=== PATIENT | male | born 1995 | race Caucasian/White ===

== ENCOUNTER 2021-02-01 17:13 | Emergency (ER) | payer OTHER ==
[~2021-02-01] VITALS: Ht 205.7 cm; Wt 249.5 kg
[2021-02-01 18:43] LABS: ABSOLUTE NEUTROPHILS 6.4 thou/uL (1.4-8.2); BASOPHILS 0.7 % (0.0-2.0); EOSINOPHILS 2.4 % (0.0-3.0); HEMATOCRIT 46.3 % (42.0-52.0); HEMOGLOBIN 15.3 gm/dL (14.0-18.0); LYMPHOCYTES 24.7 % (24.0-44.0); MCH 29.6 pg (26.0-34.0); MCHC 33.2 g/dL (28.0-37.0); MCV 89.3 fL (80.0-100.0); MONOCYTES 7.4 % (1.0-8.0); PLATELET COUNT 280 thou/uL (150-400); POLYS 64.8 % (36.0-66.0); RBC 5.18 mil/uL (4.50-6.00); RDW 14.5 % (10.5-14.5); WBC 9.8 thou/uL (4.0-11.0)
[2021-02-01 18:45] LABS: ANION GAP 8 mmol/L (7-16); BUN 14 mg/dL (7-18); CALCIUM 9.3 mg/dL (8.5-10.1); CHLORIDE 106 mmol/L (98-107); CO2 26 mmol/L (21-32); CREATININE 1.1 mg/dL (0.7-1.3); GLUCOSE 88 mg/dL (74-106); POTASSIUM 3.8 mmol/L (3.5-5.1); SODIUM 140 mmol/L (136-145)
[2021-02-01 18:55] LABS: ALBUMIN 3.5 g/dL (3.4-5.0); SGOT 38 U/L (15-37); SGPT 48 U/L (16-63); TOTAL BILIRUBIN 0.7 mg/dL (0.2-1.0); TOTAL PROTEIN 7.7 g/dL (6.4-8.2); TROPONIN-I <0.06 ng/mL (<0.06)
[2021-02-01] MEDS ORDERED: PROAIR HFA8.5 GM INH (20:21)
[2021-02-01] MEDS ORDERED: PREDNISONE 20 M20 MG PO (20:21)
[2021-02-01 20:30] VITALS: BP 155/83
--- NOTE | 2021-02-02 07:03 | EKG ---
[place] [address] [facility] [place] [address] ELECTROCARDIOGRAM REPORT Name: GIOVANNY MACKAY Room #: DEP JOHNNIE Mahnaz#: [id number] Admission: 02/01/21 Attend Phys: Discharge: 02/01/21 Date of : [birth year] Report #: [id number] [facility] ED Test Date: 2021-02-01 Test Time: 18:13:25 Pat Name: GIOVANNY MACKAY Department: Room: Gender: Music G[employer]her: : 1995 Requested By: Maynor Alexandra Order Number: [id number] MD: George Bruno Measurements Intervals [place] Rate: 81 P: 31 TN: 147 QRS: -18 QRSD: 96 T: 34 QT: 383 QTc: 445 Interpretive Statements Sinus rhythm Borderline left axis deviation Low voltage, precordial leads No previous ECG available for comparison Electronically Signed On 02-02-2021 7:03:51 CDT by George Bruno [email or web address] <ELECTRONICALLY SIGNED> By: George Bruno MD, [facility] 02/02/21 0703 1813 1813 George Bruno MD, FACC /EPI
== END 2021-02-01 20:31 | disposition home or self-care (01) ==
LOC: ER 17:13
PROVIDERS: Physician Assistant
DX: J45.901 Unspecified asthma with (acute) exacerbation (principal); F12.90 Cannabis use, unspecified, uncomplicated; Z88.0 Allergy status to penicillin; Z88.2 Allergy status to sulfonamides